=== PATIENT | male | born 1995 | race Native Hawaiian/Other Pacific Islander ===

== ENCOUNTER 2018-09-11 12:47 | Emergency (ER) | payer OTHER ==
[2018-09-11] MEDS ORDERED: BOOSTRIX IM ONE ×2 (12:53→16:38)
--- NOTE | 2018-09-11 12:59 | Emergency Department Report ---
Chief Complaint: Wound/Laceration Stated Complaint: CUT LEFT PINKEY FINGER Time Seen by Provider: 09/11/18 12:53 - HPI History of Present Illness: This is a 23 y.o. male that presents with laceration to right proximal 5th phalanx. Patient was removing sheetrock when he accidentally cut right 5th finger. He is unsure of last tetanus vaccine. - Exam Vital Signs: Vital Signs 09/11/18 12:56 Temperature 97.5 F L Pulse Rate 107 H Respiratory 18 Rate Blood Pressure 161/108 O2 Sat by Pulse 98 Oximetry MSE screening note: Focused history and physical exam performed. Due to findings the following was ordered: XR of right fingers. Boostrix ACC for further evaluation. ED Disposition for MSE Condition: Stable
--- NOTE | 2018-09-11 14:02 | XRay Report ---
XRAY LEFT FIFTH FINGER THREE VIEWS: 09/11/18 12:47:00 CLINICAL: Trauma and laceration. FINDINGS: No fracture or dislocation. The bones and joints are normal. Soft tissue swelling at the fifth metacarpal. No soft tissue air or foreign body. IMPRESSION: Soft tissue injury.
[2018-09-11] MEDS ORDERED: XYLOCAINE 1% 20 mL INFILTRATI ONE (15:59)
--- NOTE | 2018-09-11 16:44 | Emergency Department Report ---
ED General Adult HPI - General Chief complaint: Wound/Laceration Stated complaint: CUT LEFT PINKEY FINGER Time Seen by Provider: 09/11/18 12:53 Source: patient Mode of arrival: Ambulatory Limitations: No Limitations - History of Present Illness Initial comments: Patient presents to the emergency department with a chief complaint of injury to the fifth digit of his left hand. 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 The patient states he immediately poured a bottle alcohol and peroxide on the wound. Patient is able to move the digit without issues. Patient denies other injury and denies falling or hitting his head. -: Sudden Location: upper extremity Radiation: non-radiation Severity scale (0 -10): 8 Quality: stabbing Consistency: constant Improves with: rest Worsens with: movement Associated Symptoms: denies other symptoms Treatments Prior to Arrival: none - Related Data Previous Rx's Medication Instructions Recorded Last Taken Type Acetaminophen/Codeine [Tylenol 1 tab PO Q6H PRN #15 tab 09/11/18 Unknown Rx /Codeine # 3 tab] Cephalexin [Keflex] 250 mg PO QID #28 capsule 09/11/18 Unknown Rx traMADol [Ultram] 50 mg PO Q6HR PRN #24 tablet 09/11/18 Unknown Rx Allergies Allergy/AdvReac Type Severity Reaction Status Date / Time No Known Allergies Allergy Unverified 09/11/18 12:49 ED Review of Systems ROS: Stated complaint: CUT LEFT PINKEY FINGER Other details as noted in HPI Constitutional: denies: chills, fever Eyes: denies: eye pain, eye discharge, vision change ENT: denies: ear pain, throat pain Respiratory: denies: cough, shortness of breath, wheezing Cardiovascular: denies: chest pain, palpitations Endocrine: no symptoms reported Gastrointestinal: denies: abdominal pain, nausea, diarrhea Genitourinary: denies: urgency, dysuria Musculoskeletal: other (left fifth digit pain). denies: back pain, joint swelling, arthralgia Skin: denies: rash, lesions Neurological: denies: headache, weakness, paresthesias Psychiatric: denies: anxiety, depression Hematological/Lymphatic: denies: easy bleeding, easy bruising ED Past Medical Hx - Past Medical History Hx Hypertension: Yes - Social History Smoking Status: Current Every Day Smoker Substance Use Type: None - Medications Home Medications: Home Medications Medication Instructions Recorded Confirmed Last Taken Type Acetaminophen/Codeine [Tylenol 1 tab PO Q6H PRN #15 tab 09/11/18 Unknown Rx /Codeine # 3 tab] Cephalexin [Keflex] 250 mg PO QID #28 capsule 09/11/18 Unknown Rx traMADol [Ultram] 50 mg PO Q6HR PRN #24 tablet 09/11/18 Unknown Rx ED Physical Exam - General Limitations: No Limitations General appearance: alert, in no apparent distress - Head Head exam: Present: atraumatic, normocephalic - Eye Eye exam: Present: normal appearance, PERRL, EOMI - ENT ENT exam: Present: mucous membranes moist - Neck Neck exam: Present: normal inspection - Rectal Rectal exam: Present: deferred - Extremities Exam Extremities exam: Present: normal inspection, other (visit was over laceration of the palmar aspect of the proximal fifth digit; patient has good flexion and extension against resistance; FDP and FDS are intact; patient has good ulnar and radial pulses and good Refill) - Back Exam Back exam: Present: normal inspection - Neurological Exam Neurological exam: Present: alert, oriented X3, CN II-XII intact. Absent: motor sensory deficit - Psychiatric Psychiatric exam: Present: normal affect, normal mood - Skin Skin exam: Present: warm, dry, intact, normal color. Absent: rash ED Course Vital Signs 09/11/18 12:56 Temperature 97.5 F L Pulse Rate 107 H Respiratory 18 Rate Blood Pressure 161/108 O2 Sat by Pulse 98 Oximetry - Laceration /Wound Repair Left Palm Finger Wound Location: upper extremity Wound Length (cm): 2 Wound's Depth, Shape: superficial, into muscle Wound Explored: clean Irrigated w/ Saline (ccs): 300 Betadine Prep?: Yes Anesthesia: 1% Lidocaine Wound Repaired With: sutures Suture Size/Type: 3:0, proline Number of Sutures: 3 Layer Closure?: No Sterile Dressing Applied?: Yes ED Medical Decision Making - Radiology Data Radiology results: report reviewed - Medical Decision Making Results of imaging discussed with patient Suture repair done Dressing applied and placed in a finger splint Critical care attestation.: If time is entered above; I have spent that time in minutes in the direct care of this critically ill patient, excluding procedure time. ED Disposition Clinical Impression: Finger laceration Disposition: DC-01 TO HOME OR SELFCARE Is pt being admited?: No Does the pt Need Aspirin: No Condition: Stable Instructions: Suture Care (ED), Laceration (ED) Additional Instructions: return if worse Prescriptions: Cephalexin [Keflex] 250 mg PO QID #28 capsule Acetaminophen/Codeine [Tylenol /Codeine # 3 tab] 1 tab PO Q6H PRN #15 tab PRN Reason: pain traMADol [Ultram] 50 mg PO Q6HR PRN #24 tablet PRN Reason: Pain Referrals: CHIOMA MOREIRA MD [Primary Care Provider] - 3-5 Days Forms: Work/School Release Form(ED) Time of Disposition: 16:44
[2018-09-11 16:58] VITALS: BP 154/102
== END 2018-09-11 16:56 | disposition home or self-care (01) ==
LOC: ED 12:47
DX: S61.211A Laceration without foreign body of left index finger without damage to nail, initial encounter (principal); I10 Essential (primary) hypertension; F17.200 Nicotine dependence, unspecified, uncomplicated; W23.0XXA Caught, crushed, jammed, or pinched between moving objects, initial encounter; Y93.89 Activity, other specified; Y92.89 Other specified places as the place of occurrence of the external cause; Y99.8 Other external cause status
CPT/HCPCS: 90471; 90715